=== PATIENT | female | born 1960 | race Caucasian/White ===

== ENCOUNTER 2017-07-05 13:00 | Outpatient (RCR) | payer MEDICAID, SELFPAY ==
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
--- NOTE | 2017-06-14 13:58 | HP.PTREVAL_ITS ---
Omar Ribeiro MD, It has been my pleasure to treat MIGUEL SCHMITT over the last 14 visits for CERVCIAL AND LUMBAR DDD. Please see the progress note below for an update on the physical therapy plan of care! Subjective: PATIENT REPORTS SHE IS STRONGER THROUGH HER LOWER CORE. SHE STATES SHE FEELS LIKE SHE IS ACTUALLY MOVING HER LEGS INSTEAD OF DRAGGING HER LEGS. REPORTS SHE IS DOING WATER EX 1-2 TIMES A WEEK ON HER OWN. SHE REPORTS SHE FEELS LIKE SHE NEEDS TO CONTINUE PT TO BETTER LEARN HOW TO DO THE EX'S CORRECTLY ON HER OWN. PATIENT REPORTS SHE REALLY LIKES THE WATER FOR EX BECAUSE SHE CAN FOCUS ON HER EX FORM BETTER IN THE WATER. Objective/Function: PATIENT IS MAKING PROGRESS TOWARD ALL GOALS. UPON EXAM TODAY: Motor deficit: HUNG UE AND LE STRENGTH GROSSLY 4+/5 WITH MMT. Sensory deficit: HUNG UE AND LE LIGHT TOUCH SENSATION INTACT AND SYMMETRICALEXCEPT PATIENT REPORTING DECREASED SENASATION. OF LEFT LATERAL PROXIMAL FOREARM AND LEFT LATERAL FOOT DECREASE. ROM deficit: HUNG UE AND LE ROM WFL. Dural Signs: NEGATIVE. Lumbar mvmt loss: flex - MNIL. ext - MOD. R SG - MIN TO MOD. L SG - MOD. Cervical Mvmt Loss: Flex: NIL. Pro: NIL. Ext: MIN. Ret: MOD. RSB : MIN. LSB: MOD. R Rot: MIN. L Rot: MIN. Core strength: FAIR. PATIENT REPORTS FEELING STEADIER WITH TESTING TODAY. BACK OSWESTRY HAS IMPROVED FORM 23 TO 19. Plan Plan: CONT PER POC 2X'S A WEEK X 2-3 WEEKS. Goals Goal 1:: DECREASE C/O NECK AND BACK PAIN Goal Time Frame: 4-6 Weeks Goal 2:: IMPROVE PERSONAL CARE, LIFTING, WALKING, SITTING, STANDING, SOCIAL LIFE , TRAVEL AND EMPLOYMENT/HOMEMAKING FUNCTION Goal Time Frame: 4-6 Weeks Goal Progress: Goal Met Goal 3:: INSTRUCT IN PROPHYLAXIS Goal Time Frame: 4-6 Weeks Anticipated Interventions Patient/Client Instruction: Educate patient on: Condition, Plan of Care, Risk Factors, Benefits of Fitness Program For the Purpose of:: To improve self management Therapeutic Exercise to Include: Strength training, Body mechanics, Postural training, Flexibilty training, In an aquatic setting, Active ROM, Dynamic Lumbar Stabilization, Scapular Strength/Stabilization For the Purpose of:: To decrease pain, To increase ROM, To improve muscle performance and motor function, To improve ability of physical actions for home/ community/work/leisure Please do not hesitate to contact me at [phone] by phone or Fax: if you have questions or concerns regarding this new plan of care! Sincerely, Tala Gilman
--- NOTE | 2017-07-05 13:59 | HP.PTDCSUM_ITS ---
HP - PT D/C Summary It has been my pleasure to treat MIGUEL SCHMITT under orders from Omar Ribeiro MD, for the diagnosis of CERVCIAL AND LUMBAR DDD for a total of 19 visit(s). Discharge Date: Please see the following information for a summary of their discharge status. - Subjective Subjective: PATIENT REPORTS HER CORE STRENGTH IS CONTINUING TO IMPROVE HELPING HER SIT LONGER AND STAND LONGER. SHE STATES SHE HAS MUCH BETTER MUSCLE AWARENESS NOW ALLOWING BETTER INDEP WITH THE EX'S. - Pain LUmbar Spine Pain Intensity (Out of 10): 5 Cervical Spine Pain Intensity (Out of 10): 2 BLEs Pain Intensity (Out of 10): 3 UE Pain Intensity (Out of 10): 4 - Overall Improvement % Improvement: 80 - Objective Objective/Function: Motor deficit: HUNG UE AND LE STRENGTH GROSSLY 4+/5 WITH MMT. ROM deficit: HUNG UE AND LE ROM WFL. Dural Signs: NEGATIVE. Lumbar mvmt loss: flex - NIL. ext - MOD. R SG - MIN TO MOD. L SG - MOD. Cervical Mvmt Loss: Flex: NIL. Pro: NIL. Ext: MIN. Ret: MOD. RSB: MIN. LSB: MIN. R Rot: MIN. L Rot: MIN. Core strength: FAIR. BACK OSWESTRY HAS IMPROVED FORM 19 TO 17. - Goals Goal 1:: DECREASE C/O NECK AND BACK PAIN Goal 2:: IMPROVE PERSONAL CARE, LIFTING, WALKING, SITTING, STANDING, SOCIAL LIFE , TRAVEL AND EMPLOYMENT/HOMEMAKING FUNCTION Goal Progress: Goal Met Goal 3:: INSTRUCT IN PROPHYLAXIS - Plan Plan: D/C TO INDEP POOL PROGRAM AT THIS TIME. PATIENT IS AGREEABLE WITH THIS RECOMMENDATION AND IS EXPRESSING APPRECIATION FOR THE HELP WE HAVE GIVEN HER. - D/C Information If there are questions or concerns regarding this patient's physical therapy, please feel free to call me at [phone]. Thank you for the referral of this patient. Sincerely, Tala Gilman
== END 2017-07-05 18:25 | disposition home or self-care (01) ==
LOC: PT 13:00
PROVIDERS: Family Provider Family Medicine; PCP Family Medicine; Visit Provider Anesthesiology Pain Medicine
DX: M50.30 Other cervical disc degeneration, unspecified cervical region (principal); M51.36 Other intervertebral disc degeneration, lumbar region
CPT/HCPCS: 97113; 97162; 97530

== ENCOUNTER 2017-09-25 17:04 | Emergency (ER) | payer MEDICAID, SELFPAY ==
[2017-09-25 17:04] VITALS: BP 144/100; PULSE 86; RESP 18; TEMP 37.1; O2SAT 100; BMI 25.7
[2017-09-25] MEDS: Ondansetron 4 MG/2 ML Vial IV (17:43)
[2017-09-25] MEDS: 0.9% Normal Saline 1,000 ML 150 ML IV (17:43)
[2017-09-25] MEDS: Morphine 2 MG/ML Syringe IV (17:43)
[2017-09-25 17:56] LABS: Absolute Lymphocyte Count 1.75 X10^3/ul (0.83-4.51); Basophil# 0.02 X10^3/uL; Basophil% 0.2 % (0-1); Eosinophil# 0.01 X10^3/uL; Eosinophils% 0.1 % (0-5); Hemoglobin 15.9 g/dl (12.0-15.0); Lymphocyte # 1.75 X10^3/ul (4.0); Lymphocyte % 20.4 % (19-41); Mean Corp Hgb Conc 33.1 g/gl (32-36); Mean Corpuscular Hgb 28.5 pg (27.0-32.0); Mean Platelet Vol. 9.8 fl (6.2-12.0); Monocyte# 0.78 X10^3/uL; Monocyte% 9.1 % (0-10); Neutrophil # 6.01 X10^3/uL (2.7-7.7); Neutrophil % 70.1 % (47-70); POSITIVE COUNT NO; POSITIVE DIFFERENTIAL NO; POSITIVE MORPHOLOGY NO; Platelet Count 225 K/mm3 (150-450); RBC Distribution Width CV 14.1 % (11.6-14.6); RBC Distribution Width SD 44.1 fl (35.1-43.9); Red Blood Count 5.58 M/mm3 (4.2-5.4); White Blood Count 8.6 K/mm3 (4.4-11.0)
[2017-09-25 18:05] LABS: Anion Gap 3 (5-15); BUN 11 mg/dL (7-18); BUN/Creat Ratio 14.2 RATIO (10-20); Calcium,Total 8.8 mg/dL (8.5-10.1); Chloride 106 mmol/L (98-107); Creatinine, Serum 0.77 mg/dL (0.55-1.02); EST Glomerular Filtration Rate 82 mL/min (>60); Est Glom Filt Rate - Afr Amer 99 mL/min (>60); Estimated Creatinine Clearance 74.55 ml/min; Glucose 79 mg/dL (74-106); Potassium 3.6 mmol/L (3.5-5.1); Sodium Level 138 mmol/L (136-145)
[2017-09-25 19:01] LABS: Bacteria 0 SEEN /hpf (None Seen); Mucous, Urine 0 SEEN /hpf (<or=2+); Red Blood Cells-Urine 0 SEEN /hpf (0-5); Squamous Epithelial Cells - UA 0 SEEN /hpf (5-10); White Blood Cells 0 SEEN /hpf (0-5)
[2017-09-25 19:05] LABS: Color, Urine Yellow (Yellow); Glucose, Dipstick Normal (Normal); Ketone-Dipstick Negative (Negative); Leukocyte Esterase-Dipstick Negative /ul (Negative); Nitrite-Dipstick Negative (Negative); Occult Blood-Urine Negative /ul (Negative); Protein-Dipstick Negative (Negative); Urine Bilirubin Dipstick Negative (Negative); Urine Clarity Clear (Clear); Urine Urobilinogen Normal (Normal); Urine pH 6.5 (5.0 - 8.0)
--- NOTE | 2017-09-25 19:19 | ED.DCSUM_ITS ---
- ER Visit Summary Date of Service: 09/25/17 Chief Complaint: Abdominal pain History of Present Illness: The patient is a 57 F with abdominal pain for the past 3 or 4 days. She describes a burning sensation in her lower abdomen and lower back last night. Now the pain is more focal in the right lower quadrant. She denies fever or chills. She does report that she is constipated but still passing gas. She was seen by her primary care physician who wanted to order an outpatient CT scan, but due to problems with prior authorization was sent to the emergency room. Past history significant for asthma, anxiety, hypothyroidism, reflux disease, polymyalgia rheumatica. Prior surgical history includes appendectomy, cholecystomy, and lysis of abdominal adhesions. Medication allergy list is reviewed and does include both oral and IV contrast for CT scans. Physical Examination: Vital signs unremarkable. Patient sitting upright in bed. She does appear uncomfortable but she is in no acute distress. Heart is regular rate and rhythm. Lung sounds are clear. Abdomen is soft with mild tenderness in the right lower quadrant. No guarding or rebound is noted. She does have right CVA tenderness on exam. Test Results: CBC was normal white count. Hemoglobin 15.9. Chemistry studies normal. Urinalysis normal. CT flank shows diffusely heterogeneous uterus with fibroid uterus. I was called by CT staff who does advise she has large amount of stool, especially near the cecum. Emergency Department Course and Treatment: Patient was initially given morphine , Zofran, and IV fluids. Test results were discussed with the patient and at bedside. She will be given GoLYTELY for home to improve her constipation and see if this resolves her pain. Treatment Plan: [] Disposition: Discharge Impression: 1. Abdominal pain 2. Constipation This note was generated with Kahnoodleation software. It may contain incorrect words, spelling, and punctuation that were not noted in review of the chart prior to signing ED Disposition - Plan for ED Patient: Disposition: Home or Assisted Living Chief Complaint: Abd Pain Instructions: ED Constipation Referrals: Pito Dupree MD [Primary Care Provider] - 3-5 Days if not improving
[2017-09-25] MEDS: Electrolyte Solution/Peg's 4000 ML PO (19:30)
[2017-09-25 19:31] VITALS: BP 121/84; PULSE 70; RESP 16; O2SAT 100
== END 2017-09-25 19:32 | disposition home or self-care (01) ==
PROVIDERS: Emergency Provider Emergency Medicine; Family Provider Family Medicine; PCP Family Medicine
DX: R10.9 Unspecified abdominal pain (principal); K59.00 Constipation, unspecified; J45.909 Unspecified asthma, uncomplicated; E03.9 Hypothyroidism, unspecified; K21.9 Gastro-esophageal reflux disease without esophagitis; M35.3 Polymyalgia rheumatica
CPT/HCPCS: 74176; 80048; 81001; 85025; 99283; J7030; A4216; J2405

== ENCOUNTER → 2018-02-05 11:00 | Outpatient (CLI) | payer MEDICAID, SELFPAY ==
--- NOTE | 2018-02-05 11:00 | FLU_PTH ---
PATIENT: MIGUEL SCHMITT LOC: [facility] U#:[id number] AGE/SX: 64/F ROOM: RE02/05/[address]: Dr. Steph Partida MD : 1960 BED: DIS: SPEC #: [id number] RECD: 02/07/18 12:11 STATUS: JOSEPH REQ #: [id number] JACK: 02/05/18 11:[address]: Steph Partida DEPT: CYTOLOGY RECD BY: Nathan Grissom ENTERED: 02/07/18 12:44 SP TYPE: Fluid OTHR DR: Dr. Pito Dupree MD Tissues: A - Head, NOS B - Head, NOS Procedures: Pap Stain (control) Special Stain Group II Surgery Specimen Level IV Cell Block Cytospin Fluid Cytology Other HEADER OPERATION: Fine needle aspiration of mass back of head PRE-OP DIAGNOSIS: Mass on back of head TISSUE SUBMITTED: A - FNA mass back of head for cytology, B - FNA mass back of head (4 slides) DIAGNOSIS CYTOLOGY A. Mass back of head, fine needle aspiration (smears and cell block): Scant squamous epithelial cells are present. See comment. B. Mass back of head, fine needle aspiration (smears): Blood and rare benign squamous epithelial cells are present. See comment. AM:cresencio 02/08/18 COMMENT A & B. The lesion may represent an epidermal inclusion cyst. There is no evidence of malignancy. Clinical correlation is suggested. CYTOLOGY STUDY Slides are reviewed. CYTOLOGY GROSS A - Received is 30 ml of cloudy fluid labeled with the patient's name and and designated per the requisition as mass back of head. Submitted for cytology preparation including cell block. B - Received are four smears labeled with the patient's name and designated per the requisition as mass back of head. Submitted for staining. 02/07/18 TC:5 CPT: 74410, 52736, 48054
== END ==
PROVIDERS: Family Provider Family Medicine; PCP Family Medicine; Referring Provider Surgery; Visit Provider Surgery
DX: R22.0 Localized swelling, mass and lump, head (principal)
CPT/HCPCS: 88108; 88161; 88305; 88313

== ENCOUNTER 2018-03-23 16:07 | Emergency (ER) | payer MEDICAID, SELFPAY ==
[2018-03-23 16:09] VITALS: BP 136/89; PULSE 100; RESP 18; TEMP 36.1; O2SAT 100; BMI 26.6
--- NOTE | 2018-03-23 16:31 | EKG12_ITS ---
Test Reason : PALPS Blood Pressure : / mmHG Vent. Rate : 100 BPM Atrial Rate : 100 BPM P-R Int : 156 ms QRS Dur : 084 ms QT Int : 362 ms P-R-T Axes : 030 013 019 degrees QTc Int : 466 ms Sinus rhythm with occasional Premature ventricular complexes and Premature atrial complexes Inferior infarct , age undetermined Cannot rule out Anterior infarct , age undetermined Abnormal ECG Confirmed by MADI SIMPSON, NAYANA ([id number]), editor school photograph ANGIE VARGAS ([id number]) on 03/26/2018 10:22:45 AM Referred By: VIJAY Confirmed By:NAYANA BARRAZA MD
--- NOTE | 2018-03-23 16:35 | ED.DCSUM_ITS ---
- ER Visit Summary Date of Service: 03/23/18 Chief Complaint: Palpitations History of Present Illness: The patient is a 57 F your prior SVT. Also history of polymyalgia rheumatica for which she is on steroids depression and hypothyroidism. Patient states that the last 2 days she is accelerated heart rate. And just felt dizzy. Not vertiginous. No headache. No history of DVT or PE. No recent travel or surgery. Physical Examination: Well-appearing middle-aged female. Vital signs are stable. Heart rate 100. Pulse ox 100% on room air no signs of hypoxia. H EENT exam unremarkable. Neck nontender no lymphadenopathy. Lungs clear to auscultation bilaterally. Heart regular rhythm no murmur. Rate about 100. Occasional PACs on monitor. Lungs clear to auscultation bilaterally. Abdomen soft nontender. Normal bowel sounds no peritoneal signs. Remedies moves all 4. Calves nontender without edema or cords. Neurologically moving all 4 extremities. Awake and alert. No focal motor deficits. Test Results: CBC showed a white count 11. Hemoglobin 15. Electrolytes unremarkable normal creatinine and gap. Troponin normal. EKG showed sinus rhythm rate of 102 with occasional PVCs and PACs. Chest x-ray showed no acute abnormality. Emergency Department Course and Treatment: Patient will undergo cardiac workup. Basically has an unremarkable exam other than occasional PACs. Repeat exam patient is doing well on 7036 and is comfortable being discharged home. Treatment Plan: Follow-up with primary care physician if not improving. Disposition: Discharge Impression: Acute palpitations with PACs and PVCs This note was generated with OurHealthMate dictation software. It may contain incorrect words, spelling, and punctuation that were not noted in review of the chart prior to signing ED Disposition - Plan for ED Patient: Referrals: Pito Dupree MD [Primary Care Provider] -
--- NOTE | 2018-03-23 16:35 | RAD_ITS ---
STUDY: X-RAY CHEST REASON FOR EXAM: Female, 57 years old. Tachycardia TECHNIQUE: Single AP portable view of the chest. COMPARISON: 04/22/2016 FINDINGS: EKG leads overlie the chest The lungs are clear and expanded. There is no demonstrated pleural abnormality. Normal size heart. Normal mediastinum and sameer. Normal visualized pulmonary arteries. Normal visualized aortic arch and descending thoracic aorta. Normal visualized thoracic spine. Normal visualized ribs, clavicles, and shoulders. There is no demonstrated abnormality of the visualized soft tissue structures of the upper abdomen. RAD/Chest 1 View (Portable) IMPRESSION: Normal x-ray examination of the chest. Electronically Signed: Nino Curtis MD at 17:15 EST , Service support ,
[2018-03-23 16:45] VITALS: O2SAT 96
[2018-03-23 16:47] VITALS: BP 107/62; BP 108/90; BP 112/86; PULSE 106; PULSE 87; PULSE 95
[2018-03-23 17:13] LABS: Absolute Lymphocyte Count 1.79 X10^3/ul (0.83-4.51); Absolute Neutrophil Count 8.1 X10^3/uL (2.0-7.7); Basophil# 0.02 X10^3/uL; Basophil% 0.2 % (0-1); Eosinophil# 0.14 X10^3/uL; Eosinophils% 1.3 % (0-5); Hematocrit 46.3 % (37-47); Lymphocyte # 1.79 X10^3/ul (4.0); Lymphocyte % 16.3 % (19-41); Mean Corp Hgb Conc 32.4 g/gl (32-36); Mean Corpuscular Hgb 28.1 pg (27.0-32.0); Mean Corpuscular Volume 86.7 fL (81-99); Mean Platelet Vol. 10.3 fl (6.2-12.0); Monocyte# 0.87 X10^3/uL; Monocyte% 7.9 % (0-10); Neutrophil # 8.12 X10^3/uL (2.7-7.7); Platelet Count 274 K/mm3 (150-450); RBC Distribution Width CV 13.6 % (11.6-14.6); RBC Distribution Width SD 42.3 fl (35.1-43.9); Red Blood Count 5.34 M/mm3 (4.2-5.4)
[2018-03-23 17:14] LABS: POSITIVE COUNT NO; POSITIVE DIFFERENTIAL NO; POSITIVE MORPHOLOGY NO
[2018-03-23 17:15] LABS: Anion Gap 8 (5-15); BUN 11 mg/dL (7-18); Calcium,Total 8.2 mg/dL (8.5-10.1); Chloride 105 mmol/L (98-107); Creatinine, Serum 0.91 mg/dL (0.55-1.02); EST Glomerular Filtration Rate 67 mL/min (>60); Est Glom Filt Rate - Afr Amer 81 mL/min (>60); Estimated Creatinine Clearance 63.08 ml/min; Glucose 123 mg/dL (74-106); Potassium 4.1 mmol/L (3.5-5.1); Sodium Level 137 mmol/L (136-145)
--- NOTE | 2018-03-23 17:40 | EKG12_ITS ---
Test Reason : PALPS Blood Pressure : / mmHG Vent. Rate : 077 BPM Atrial Rate : 077 BPM P-R Int : 152 ms QRS Dur : 088 ms QT Int : 388 ms P-R-T Axes : 033 -11 020 degrees QTc Int : 439 ms Sinus rhythm with Premature supraventricular complexes Inferior infarct , age undetermined Abnormal ECG Confirmed by MADI SIMPSON, NAYANA ([id number]), fan mail editor ANGIE VRAGAS ([id number]) on 03/26/2018 10:22:59 AM Referred By: VIJAY Confirmed By:NAYANA BARRAZA MD
--- NOTE | 2018-03-23 17:43 | ED.DEP ---
ED Disposition - Plan for ED Patient: Disposition: Home or Assisted Living Instructions: Premature Ventricular Contractions, ED Palpitations Referrals: Pito Dupree MD [Primary Care Provider] - 1 Week if not improving
[2018-03-23 17:44] VITALS: BP 118/92; PULSE 75; RESP 17; O2SAT 96
[2018-03-23 18:12] VITALS: BP 118/92; PULSE 92; RESP 18; O2SAT 96
== END 2018-03-23 18:13 | disposition home or self-care (01) ==
PROVIDERS: Emergency Provider Emergency Medicine; Family Provider Family Medicine; PCP Family Medicine
DX: R00.2 Palpitations (principal); I49.3 Ventricular premature depolarization; M35.3 Polymyalgia rheumatica; E03.9 Hypothyroidism, unspecified; F32.9 Major depressive disorder, single episode, unspecified
CPT/HCPCS: 71045; 80048; 84484; 85025; 93005; 99285; A4216

== ENCOUNTER → 2018-07-02 07:22 | Outpatient (CLI) | payer MEDICAID, SELFPAY ==
--- NOTE | 2018-07-02 07:43 | MRI_ITS ---
STUDY: MRI LUMBAR SPINE WITH AND WITHOUT CONTRAST REASON FOR EXAM: Female, 58 years old. Postlaminectomy syndrome. Right leg pain. TECHNIQUE: Standardized fat and water weighted pulse sequences were obtained in the sagittal and axial planes. 15 IV Gadavist was administered for the contrast portion of the examination. COMPARISON: December 07, 2016. FINDINGS: No abnormal/unexpected contrast enhancement. Mild lumbar straightening. No significant scoliosis. Conus medullaris terminates normally at the L2 level. T10-11 left perineural cyst (sagittal image 5 series 3). T12-L1: Normal endplates. Normal disc height, hydration and morphology. Normal bilateral facet joints. Normal central canal and bilateral lateral recesses. Normal bilateral intervertebral neural foramina. L1-2: Mild endplate spondylosis. Disc desiccation. Normal bilateral facet joints. Normal central canal and bilateral lateral recesses. Normal bilateral intervertebral neural foramina. L2-3: Normal endplates. Normal disc height, hydration and morphology. Normal bilateral facet joints. Normal central canal and bilateral lateral recesses. Normal bilateral intervertebral neural foramina. L3-4: Normal endplates. Normal disc height, hydration and morphology. Normal bilateral facet joints. Normal central canal and bilateral lateral recesses. Normal bilateral intervertebral neural foramina. L4-5: Normal endplates. Disc desiccation. Facet joint arthrosis. Normal central canal and bilateral lateral recesses. Normal bilateral intervertebral neural foramina. L5-S1: Moderate endplate spondylosis. Disc height loss with disc desiccation. Facet joint arthrosis. Normal central canal and bilateral lateral recesses. Normal bilateral intervertebral neural foramina. Right hemilaminotomy. Sacrum intact. Normal aorta. Normal paraspinal muscles. Normal retroperitoneum. MRI/Spine Lumbar W/WO Contrast IMPRESSION: No abnormal/unexpected contrast enhancement Mild intervertebral disc disease without canal narrowing No significant neural foraminal or lateral recess narrowing Mild L1-2 and L5-S1 endplate spondylosis Mild L4-5 and L5-S1 facet joint arthrosis with right hemilaminotomy Electronically Signed: Barney Mclean DO at 9:16 EDT Tel , Service support ,
== END ==
PROVIDERS: Family Provider Family Medicine; PCP Family Medicine; Referring Provider Anesthesiology Pain Medicine; Visit Provider Anesthesiology Pain Medicine
DX: M96.1 Postlaminectomy syndrome, not elsewhere classified (principal); M79.604 Pain in right leg
CPT/HCPCS: 72158; A9575

== ENCOUNTER 2018-09-21 21:09 | Emergency (ER) | payer MEDICAID, SELFPAY ==
[2018-09-21 21:11] VITALS: BP 148/109; PULSE 53; RESP 18; TEMP 37.1; O2SAT 98; BMI 28.4
[2018-09-21 21:28] VITALS: O2SAT 98
--- NOTE | 2018-09-21 21:48 | EKG12_ITS ---
Test Reason : PALPATIONS Blood Pressure : / mmHG Vent. Rate : 086 BPM Atrial Rate : 086 BPM P-R Int : 146 ms QRS Dur : 086 ms QT Int : 354 ms P-R-T Axes : 024 -16 012 degrees QTc Int : 423 ms Sinus rhythm with Premature atrial complexes Inferior infarct , age undetermined Abnormal ECG Confirmed by LESLIE SIMPSON, AMEENA ([id number]), acquisitions editor ANGIE VARGAS ([id number]) on 09/24/2018 1:47:06 PM Referred By: TOMAS Confirmed By:AMEENA NELSON MD
[2018-09-21 22:10] VITALS: BP 138/99; PULSE 94; RESP 11; O2SAT 92
[2018-09-21 22:25] LABS: Absolute Neutrophil Count 4.6 X10^3/uL (2.0-7.7); Basophil# 0.03 X10^3/uL; Basophil% 0.4 % (0-1); Eosinophil# 0.19 X10^3/uL; Eosinophils% 2.8 % (0-5); Hemoglobin 14.6 g/dL (12.0-15.0); Lymphocyte % 18.8 % (19-41); Mean Corp Hgb Conc 32.4 g/dL (32-36); Mean Corpuscular Hgb 28.7 pg (27.0-32.0); Mean Corpuscular Volume 88.4 fL (81-99); Monocyte# 0.75 X10^3/uL; Monocyte% 10.9 % (0-10); NRBC Flagged by Analyzer 0 % (0-5); Neutrophil # 4.61 X10^3/uL (2.7-7.7); Neutrophil % 66.8 % (47-70); Platelet Count 283 K/mm3 (150-450); RBC Distribution Width CV 12.8 % (11.6-14.6); RBC Distribution Width SD 41.7 fl (35.1-43.9); Red Blood Count 5.09 M/mm3 (4.2-5.4); White Blood Count 6.9 K/mm3 (4.4-11.0)
--- NOTE | 2018-09-21 22:31 | RAD_ITS ---
STUDY: X-RAY CHEST REASON FOR EXAM: Female, 58 years old. Shortness of breath TECHNIQUE: Frontal and lateral views of the chest COMPARISON: 03/23/2018 FINDINGS: The lungs are clear. There are no pleural effusions. There is no pneumothorax. The heart is normal in size. The visualized osseous structures are within normal limits. RAD/Chest PA and Lateral IMPRESSION: No acute thoracic pathology. Electronically Signed: Vikash Dove, at 22:50 EDT Tel , Service support ,
[2018-09-21 22:42] LABS: Anion Gap 4 (5-15); BUN 13 mg/dL (7-18); BUN/Creat Ratio 16.1 RATIO (10-20); Calcium,Total 9.4 mg/dL (8.5-10.1); Chloride 104 mmol/L (98-107); Creatinine, Serum 0.81 mg/dL (0.55-1.02); EST Glomerular Filtration Rate 77 mL/min (>60); Est Glom Filt Rate - Afr Amer 93 mL/min (>60); Estimated Creatinine Clearance 67.29 ml/min; Glucose 107 mg/dL (74-106); Potassium 3.7 mmol/L (3.5-5.1); Sodium Level 140 mmol/L (136-145)
[2018-09-21 23:11] VITALS: PULSE 89; RESP 16
[2018-09-21] MEDS: Ipratropium/Albuterol Sulfate 3 ML AMPUL.NEB INHALATION (23:11)
--- NOTE | 2018-09-21 23:21 | ED.DCSUM_ITS ---
- ER Visit Summary Date of Service: 09/21/18 Chief Complaint: Shortness of breath History of Present Illness: The patient is a 58 F who presents with irregular heartbeat and shortness of breath that began today. Patient states she feels like she is having skipping beats in her chest. Patient admits to some dizziness. Patient states that she is having irregular palpitations. Patient states she has a history of palpitations but this feels different. Patient admits to some shortness of breath and some nausea. Patient denies any chest pain. Physical Examination: Vital signs are stable. Patient is afebrile. Patient is in no acute distress. Oral mucosa is pink and moist. Neck is supple. Trachea is midline. There is no JVD noted. Heart was regular rate and rhythm with occasional ectopics noted. Lungs are clear and equal bilaterally. Abdomen is soft. Bowel sounds are normal. There is no tenderness. Cranial nerves II through XII are intact. There are no focal motor or sensory deficits noted. Test Results: EKG showed normal sinus rhythm with a rate of 86. There are occasional PACs noted. There are no acute ST or T wave changes. CBC, basic metabolic profile, and troponin were obtained and were normal. PA and lateral chest x-ray was obtained and was normal. Emergency Department Course and Treatment: Patient was given a DuoNeb here. Patient was instructed to follow-up with her primary care physician in 5 to 7 days. Patient was instructed to return if worse in any way. Patient understood and was agreeable with the plan. All questions were answered. Disposition: Discharge home Impression: 1. Palpitations This note was generated with OpenChime dictation software. It may contain incorrect words, spelling, and punctuation that were not noted in review of the chart prior to signing ED Disposition - Plan for ED Patient: Disposition: Home or Assisted Living Diagnosis: Palpitations Instructions: Palpitations Referrals: Pito Dupree MD [Primary Care Provider] - 3-5 Days
[2018-09-21 23:57] VITALS: BP 169/99; PULSE 91; RESP 19; O2SAT 92
== END 2018-09-21 23:58 | disposition home or self-care (01) ==
PROVIDERS: Emergency Provider Emergency Medicine; Family Provider Family Medicine; PCP Family Medicine
DX: R00.2 Palpitations (principal); M54.9 Dorsalgia, unspecified; G89.29 Other chronic pain
CPT/HCPCS: 71046; 80048; 84484; 85025; 93005; 94640; 99284

== ENCOUNTER 2018-12-28 02:00 | Emergency (ER) | payer MEDICARE, MEDICAID, SELFPAY ==
[2018-12-28 02:00] VITALS: BP 120/87; PULSE 82; RESP 16; TEMP 36.4; O2SAT 96; BMI 28.1
--- NOTE | 2018-12-28 02:18 | ED.VIS.GEN ---
History of Present Illness Chief Complaint: Itching Informant: Patient Onset: Hours - noticed 1 hr [employer], while putting pajamas on Timing: Continuous Quality: sore, itchy Location: left mid-back Current Severity: Mild Maximum Severity: Mild Worsened by: palpation Relieved by: leaving alone Associated Symptoms: none Narrative: Patient states she noticed this single area on her back that is sore and itchy at the same time, she did not notice it until she was getting dressed for bed tonight. Just prior to that she was in her office and states that she has not been there for months. She is concerned that because of that, maybe she was bitten by spider or something else. She denies any systemic symptoms or bleeding from anywhere. She has no known history of MRSA or abscesses. She was in a public pool 4 days ago. She recently was on prednisone for a flareup of polymyalgia rheumatica. - Past Medical History (1) Anxiety Status: Chronic (2) Depression Status: Chronic (3) Mild persistent asthma Status: Chronic (4) PMR (polymyalgia rheumatica) Status: Chronic (5) Shingles Status: Resolved Past Medical History - Allergies and Home Meds Allergies/Adverse Reactions: Allergies azithromycin [From Zithromax] Allergy (Verified 12/28/18 02:09) Anaphylaxis doxycycline Allergy (Verified 12/28/18 02:09) Rash Iodinated Contrast Media [Iodinated Contrast Media - IV Dye] Allergy (Verified 12/28/18 02:09) Unknown THROAT TIGHTING Sulfa (Sulfonamide Antibiotics) Allergy (Verified 12/28/18 02:09) Unknown Primary Care Physician: Pito Dupree MD [Primary Care Provider] - Smoking Status: Never smoker Drugs: None Review of Systems General: Denies: Chills, Fever, Sweats Gastrointestinal: Denies: Nausea, Vomiting Musculoskeletal: Reports: Back pain. Denies: Myalgias, Neck pain, Swelling, Extremity Pain Skin: Reports: Rash - See HPI Neurological: Denies: Headache, Weakness, Numbness Physical Exam Vital Signs/Narrative: Vital Signs Temp Pulse Resp BP Pulse Ox 12/28/18 02:00 97.5 F L 82 16 120/87 H 96 Inital Vital Signs reviewed: Yes General: Well nourished, Well developed, No Acute Distress Head: Normocephalic, Atraumatic Eyes: Perrl, EOMI Back: - - Tenderness at left mid back skin lesion only, otherwise normal exam. Skin: No Trauma, Rash - There is a single 1-2 cm in diameter erythematous mildly tender lesion on the left mid back just above her bra strap, it has a mildly ulcerated center, there is no abscess, discharge, bullae, petechiae/purpura. No other lesions. Neurological: Alert, Oriented x3, Cranial nerves II-XII grossly intact, Normal Strength, Normal Sensation, Normal Gait Psychological: Normal affect, Normal Mood Diagnostic/Tx/Re-eval - Medical Decision Making I reassured the patient. This does not look like an obvious bite although certainly it could have started as one and became secondarily infected. It certainly does not look like a black or brown recluse bite, nor did she feel any sudden bite. I am not able to rule out the possibility of an early MRSA lesion. She does not appear to have folliculitis. It is less likely contact dermatitis. I am unable to tell exactly what causes by looking at it. She does not have any bedbugs on her at this time that we can see. She is reassured and placed on Bactrim just in case this is early MRSA, we discussed reasons to return, and she is comfortable with this plan will keep an eye on it. She was given a Bactrim here. It was on her allergy list as an unknown reaction, she states that she has taken oral Bactrim before without any reaction but she had some redness that occurred on her face as a result of putting some topical sulfa medication on her face. ED Disposition - Plan for ED Patient: Disposition: Home or Assisted Living Diagnosis: Localized infection of skin Instructions: ABSCESS, Antiobiotic Treatment Only Prescriptions: Sulfamethoxazole/Trimethoprim [Bactrim Ds Tablet] 1 ea PO BID #[id number] tab Transmission Status: Pending to [facility] Referrals: Pito Dupree MD [Primary Care Provider] - 1 Week if not improving
[2018-12-28] MEDS: Smz/Tmp Ds Tablet 1 TABLET PO (02:27)
[2018-12-28 02:32] VITALS: BP 120/87; PULSE 82; RESP 16; O2SAT 96
[2018-12-28 02:33] VITALS: RESP 16
== END 2018-12-28 02:33 | disposition home or self-care (01) ==
LOC: ED 02:22
PROVIDERS: Emergency Provider Emergency Medicine; Family Provider Family Medicine; PCP Family Medicine
DX: L08.9 Local infection of the skin and subcutaneous tissue, unspecified (principal); M35.3 Polymyalgia rheumatica; F41.9 Anxiety disorder, unspecified; Z79.899 Other long term (current) drug therapy; J45.30 Mild persistent asthma, uncomplicated; F32.9 Major depressive disorder, single episode, unspecified
CPT/HCPCS: 99282